=== PATIENT | female | born 1955 | race Caucasian/White ===

== ENCOUNTER 2020-12-22 14:01 | Outpatient (CLI) | payer MEDICARE, OTHER, SELFPAY ==
--- NOTE | 2020-12-22 08:45 | DI.RAD_ITS ---
Exam(s) XR KNEE RT 3V AP,LAT,CARLOTA EXAM: XR KNEE RT 3V AP,LAT,CARLOTA CLINICAL HISTORY: RIGHT KNEE PAIN. TECHNIQUE: 2D digital imaging was performed. COMPARISON: No exams were available for comparison FINDINGS: There is no evidence of acute fracture. There is a small joint effusion. There are significant oste oarthritic degenerative changes. There is [id number] apposition in the lateral compartment with re sultant valgus deformity and there is also severe narrowing and osteophytes in the patellofemoral com partment. Less narrowing in the medial compartment. In addition, there is a calcific density measuring 10 x 4 millimeters seen laterally. Doubtful for f marlys and possibly loose body No osseous lesions. IMPRESSION: Significant advanced osteoarthritic degenerative changes, most evident in the lateral patellofemoral compartments. Valgus deformity. 10 x 4 millimeter calcific density seen laterally. DATA REPOSITORY: RADIATION DOSE DELIVERED:
== END 2020-12-22 14:02 | disposition home or self-care (01) ==
LOC: DIORS 14:01
PROVIDERS: Visit Provider Student in an Organized Health Care Education/Training Program
DX: M25.561 Pain in right knee (principal); M17.11 Unilateral primary osteoarthritis, right knee; E66.01 Morbid (severe) obesity due to excess calories; Z68.43 Body mass index [BMI] 50.0-59.9, adult
CPT/HCPCS: 73562; 99203

== ENCOUNTER → 2021-02-02 10:55 | Outpatient (BNVA) | payer MEDICARE, OTHER, SELFPAY | PROVIDERS: PCP Family Medicine; Visit Provider Student in an Organized Health Care Education/Training Program | DX: M25.561 Pain in right knee (principal); M17.11 Unilateral primary osteoarthritis, right knee | CPT/HCPCS: 99213 ==

== ENCOUNTER 2021-02-25 14:19 | Outpatient (CLI) | payer MEDICARE, OTHER, SELFPAY ==
--- NOTE | 2021-02-25 14:00 | DI.RAD_ITS ---
Exam(s) XR KNEE RT 1V XR STANDING ALIGNMENT EXAM: XR STANDING ALIGNMENT and XR knee RT 1 V CLINICAL HISTORY: preoperative. TECHNIQUE: 2D digital imaging was performed. COMPARISON: CR XR KNEE RT 3V AP,LAT,CARLOTA from 12/22/2020 FINDINGS: BONES: The hips are well maintained. There are marked degenerative changes in the left knee particul marvin in the medial femoral tibial joint where there is joint space narrowing subchondral sclerosis an d periarticular spurring. In the right knee, there are marked degenerative changes seen particularly in the lateral femoral tibial joint and the patellofemoral joint where there is joint space narrowin g and periarticular spurring present. There does appear to be a small joint effusion. The ankles ar e well maintained. SOFT TISSUE: Atherosclerosis is present. IMPRESSION: Marked osteoarthritis of the knees. DATA REPOSITORY: RADIATION DOSE DELIVERED:
== END 2021-02-25 14:20 | disposition home or self-care (01) ==
LOC: DIORS 14:19
PROVIDERS: PCP Family Medicine; Referring Provider Family Medicine; Visit Provider Physician Assistant Surgical
DX: M17.11 Unilateral primary osteoarthritis, right knee (principal); Z01.818 Encounter for other preprocedural examination; I10 Essential (primary) hypertension
CPT/HCPCS: 73560; 77073

== ENCOUNTER 2021-03-09 01:26 | Outpatient (CLI) | payer MEDICARE, OTHER, SELFPAY ==
[2021-03-09 10:36] LABS: HCT 43.1 % (36.0-46.0); HGB 13.3 g/dL (11.2-15.7); MCH 29.6 pg (27.0-33.0); MCHC 30.9 % (32.0-36.0); MCV 95.8 fL (80-95); MPV 11.3 fL (8.0-11.0); Platelet Count 191 10^3/uL (130-400); RDW 12.9 % (11.7-14.6); RDW-SD 45.5 fL; WBC 6.44 10^3/uL (4.4-10.8)
[2021-03-09 11:00] LABS: Anion Gap 11.8 mmol/L (3-11); BUN 24 mg/dL (7-18); CO2 26.2 mmol/L (21.0-32.0); CREATININE 0.6 mg/dL (0.55-1.02); Calcium 9.3 mg/dL (8.5-10.1); Chloride 107 mmol/L (98-107); Glucose 107 mg/dL (74-106); Sodium 145 mmol/L (136-145)
[2021-03-09 11:17] LABS: Source Nasal/Nares
[2021-03-09 14:29] LABS: COVID-19 PCR Negative (Negative)
== END 2021-03-09 01:27 | disposition home or self-care (01) ==
LOC: LBO 01:26
PROVIDERS: PCP Family Medicine; Visit Provider Student in an Organized Health Care Education/Training Program
DX: M17.11 Unilateral primary osteoarthritis, right knee (principal); Z01.818 Encounter for other preprocedural examination; Z20.822 Contact with and (suspected) exposure to COVID-19
CPT/HCPCS: 36415; 80048; 85027; 87635

== ENCOUNTER 2021-03-10 16:07 | Day surgery (SDC) | payer MEDICARE, OTHER, SELFPAY ==
[2021-03-10] VITALS (12 sets, daily range): BP systolic 86–151; BP diastolic 52–81; PULSE 53–77; RESP 14–19; TEMP 36.1–37; O2SAT 94–100; BMI 51.0
[2021-03-10] MEDS: Acetaminophen 500 MG TAB 1000 MG PO (06:35)
[2021-03-10] MEDS: Gabapentin 300 MG CAP PO (06:35)
[2021-03-10] MEDS: Celecoxib 200 MG CAP 400 MG PO (06:35)
--- NOTE | 2021-03-10 06:51 | W.ANESPRE ---
General Info Date of Service Date Performed: 03/10/21 Height: 5 ft 1 in Weight: 122.5 kg Body Mass Index (BMI): 51.0 Surgical Procedure: Operation Date: 03/10/21 07:40 Proposed Procedures Side Surgeon p Knee Total Arthroplasty w/Orthoalign Right Dyllan Gordillo MD Meds Allergies and Home Medications Allergies Allergy/AdvReac Type Severity Reaction Status Date / Time nicotine Allergy Intermediate Nausea Verified 03/10/21 06:09 orange (food color) Allergy Mild Other (See Verified 03/10/21 06:09 Comment) red (food color) Allergy Mild Other (See Verified 03/10/21 06:09 Comment) Home Medication Medication Instructions Recorded levothyroxine 50 mcg PO DAILY #90 tab-cap 11/10/12 lisinopril 10 mg PO DAILY #90 tab-cap 11/10/12 multivitamin 1 ea PO DAILY 11/10/12 calcium carbonate 600 mg calcium 600 mg PO BID 12/17/20 (1,500 mg) tablet Right Lateral Off [employer] Work[employer] Brace #1 ea 12/22/20 ascorbic acid 100 mg-elderberry 1 tab PO DAILY 12/22/20 fruit 50 mg chewable tablet elderberry fruit [Elderberry] 200 mg PO DAILY 03/09/21 Current Visit Medications: Current Medications Generic Name Dose Route Start Last Admin Trade Name Forestq PRN Reason Stop Dose Admin Acetaminophen 1,000 mg 03/10/21 06:00 03/10/21 06:35 Acetaminophen 500 Mg Tab PO 03/10/21 16:00 1,000 mg PREOP OZIEL Administration Celecoxib 400 mg 03/10/21 06:00 03/10/21 06:35 Celecoxib 200 Mg Cap PO 03/10/21 16:00 400 mg PREOP OZIEL Administration Gabapentin 300 mg 03/10/21 06:00 03/10/21 06:35 Gabapentin 300 Mg Cap PO 03/10/21 16:00 300 mg PREOP OZIEL Administration Tranexamic Acid 1,000 mg/ 60 mls @ 360 mls/hr 03/10/21 06:00 Sodium Chloride IVPB 03/10/21 16:00 PREOP OZIEL Tranexamic Acid 1,000 mg/ 60 mls @ 360 mls/hr 03/10/21 06:00 Sodium Chloride IVPB 03/10/21 16:00 DIRECTED OZIEL Ringer's Solution 1,000 mls @ 80 mls/hr 03/10/21 06:00 IV 04/08/21 23:59 INFUSION OZIEL Cefazolin Sodium/Dextrose 2 gm in 50 mls @ 100 mls/hr 03/10/21 06:00 Ancef Duplex IVPB 04/08/21 23:59 PREOP OZIEL IV Miscellaneous Supplies 1 each 03/10/21 06:00 Iv Access IV 04/08/21 23:59 DIRECTED OZIEL Sodium Chloride 0 ml 03/10/21 06:00 Normal Saline Flush 10 Ml Syr IV 04/08/21 23:59 PRN PRN Sodium Chloride 0 ml 03/10/21 06:00 Normal Saline 10 Ml Vial IJ 04/08/21 23:59 DIRECTED PRN Sterile Water 0 ml 03/10/21 06:00 Water,Injection,Sterile 10 Ml Vial IJ 04/08/21 23:59 DIRECTED PRN PFSH Active Problems Active Problems: Problem Status Onset Code Primary osteoarthritis of right knee M17.11 Essential hypertension I10 Hypothyroidism E03.9 Morbid obesity E66.01 Medical History Medical History Anterior subluxation or dislocation of shoulder Closed fracture distal humerus, lateral epicondyle Diverticulosis of colon without diverticulitis Colonoscopy 08/14/08 Tobacco Smoking/Tobacco Use Status: Never Alcohol Alcohol Intake: never Substance Use Substance use: Never Substance use type: does not use Vital Signs and Lab Results Vital Signs Most Recent Vital Signs in EMR: Most Recent Vital Signs Temp Pulse Resp BP Pulse Ox 37.0 C 77 16 151/68 H 100 03/10/21 06:13 03/10/21 06:13 03/10/21 06:13 03/10/21 06:13 03/10/21 06:13 Lab Results Blood Type / Crossmatch: No Data to Display Complete Blood Count: White Blood Count 6.44 10^3/uL (4.4-10.8) 03/09/21 10:15 03/09/21 Red Blood Count 4.50 10^6/uL (3.93-5.22) 03/09/21 10:15 03/09/21 Hemoglobin 13.3 g/dL (11.2-15.7) 03/09/21 10:15 03/09/21 Hematocrit 43.1 % (36.0-46.0) 03/09/21 10:15 03/09/21 Platelet Count 191 10^3/uL (130-400) 03/09/21 10:15 03/09/21 Complete Metabolic Panel: Sodium Level 145 mmol/L (136-145) 03/09/21 10:15 03/09/21 Potassium Level 4.0 mmol/L (3.5-5.1) 03/09/21 10:15 03/09/21 Chloride Level 107 mmol/L (98-107) 03/09/21 10:15 03/09/21 Carbon Dioxide Level 26.2 mmol/L (21.0-32.0) 03/09/21 10:15 03/09/21 Blood Urea Nitrogen 24 mg/dL (7-18) H 03/09/21 10:15 03/09/21 Creatinine 0.6 mg/dL (0.55-1.02) 03/09/21 10:15 03/09/21 Estimated GFR/1.73 m2 >= 60.00 (mL/min/1.73m2) 03/09/21 10:15 03/09/21 Calcium Level 9.3 mg/dL (8.5-10.1) 03/09/21 10:15 03/09/21 Glucose Level 107 mg/dL (74-106) H 03/09/21 10:15 03/09/21 Liver Function Panel: No Data to Display Coagulation Panel: No Data to Display Cardiac Panel: No Data to Display Arterial Blood Gas: No Data to Display Venous Blood Gas: No Data to Display Pancreas Panel: No Data to Display Thyroid Panel: No Data to Display Infectious Disease: Coronavirus (COVID-19)(PCR) Negative (Negative) 03/09/21 10:20 03/09/21 Coronavirus 2019 Source Nasal/Nares 03/09/21 10:20 03/09/21 Blood Cultures: No Data to Display Toxicology Panel: No Data to Display Anesthesia Assessment and Plan Anesthesia History Personal History: No History of Anesthesia Complications Family History: No Family History of Anesthesia Complications Exercise Tolerance Exercise Tolerance: Metabolic Equivalents>4 Pertinent Negatives Pertinent Negatives: No Symptoms of GERD, No Major Cardiovascular Symptoms or Complaints and No Major Pulmonary Symptoms or Complaints Cardiac & Pulmonary Exam Cardiac Exam: Normal S1/S2 Heart Sounds Pulmonary Exam: Clear Bilateral Breath Sounds Implantable Cardiac Device Does patient have a Pacemaker or an ICD?: No Airway Exam Known Difficult Airway: No Mallampati Class: 1 Mouth Opening: Normal (> 3cm) Thyromental Distance: Greater than 3 cm Neck Range of Motion: Full ROM Neck Circumference: Normal Teeth Condition: Normal Dentition ASA Classification ASA Score: ASA 3 Emergency Case?: No NPO Status NPO Status: NPO Clears >2 hours, Solids >8 hours Anesthesia Plan Resuscitation Status: Full Code Anesthesia Technique: Spinal Anesthesia Airway Planned: Natural Airway Pain Management: Surgeon and patient request nerve block Monitors Used: Standard Monitors Preoperative Comments:: Uses BIPAP daily
[2021-03-10] MEDS: Lactated Ringers 1,000 ML 80 ML IV (07:03)
--- NOTE | 2021-03-10 07:23 | DSE_ITS ---
Documented by User: Barbara Wallerxon 03/10/21 07:29 DS: Diagnosis Discharge Diagnosis (1) Primary osteoarthritis of right knee: Status: Acute Discharge Plan Disposition Patient Disposition: HOME Condition: Good Discharge Details Reason For Visit: Right knee DJD Attending Provider: Dyllan Gordillo Primary Care Provider: Joyce Mann Home Meds and New Rx's Prescriptions: New aspirin 81 mg tablet,delayed release (DR/EC) 81 mg PO BID 30 Days Qty: 60 RF: 0 acetaminophen 500 mg tablet 1,000 mg PO Q8H PRN Qty: 90 RF: 0 celecoxib [Celebrex] 200 mg capsule 200 mg PO BID Qty: 30 RF: 0 pantoprazole 40 mg tablet,delayed release (DR/EC) 40 mg PO DAILY 30 Days Qty: 30 RF: 0 docusate sodium [Colace] 100 mg capsule 100 mg PO BID Qty: 30 RF: 0 gabapentin 300 mg capsule 300 mg PO QHS Qty: 14 RF: 0 oxycodone 5 mg tablet 5 mg PO Q4H PRN (Reason: severe post-operative pain) Qty: 18 RF: 0 Continued calcium carbonate [Calcium 600] 600 mg calcium (1,500 mg) tablet 600 mg PO BID RF: 0 ascorbic acid-elderberry fruit [Airborne (elderberry)] 100-50 mg tablet,chewable 1 tab PO DAILY RF: 0 (DME) 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 You should try to take short walks a few times a day. It is important that when resting you work on keeping the knee straight. Avoid putting a pillow behind the knee as this will encourage flexion. Work on range of motion exercises as provided by Physical Therapy. If you have the Rue[employer] bike coming, this will be your primary tool for exercise after the knee replacement. You should use it and follow the directions for the knee. Utilize the other exercises sparingly based on your symptoms. - Start outpatient physical therapy within 2 weeks. - You should wear the LEATHA hose on both legs for 2 weeks. You may remove these at night. You may also use any compression sock in place of the LEATHA hose. - Utilize [employer] to review exercises, see videos on exercises and obtain basic information pertaining to your surgery and your recovery. Dressing: Remove the Adolfo wrap by 2 days after your surgery and put on the LEATHA stocking given to you from the hospital. Keep the surgical dressing (underneath the ADOLFO wrap) in place for at least one week. After the first week it may be removed and replaced with light gauze and tape or nothing. The wound and dressing may get wet after 3 days but avoid soaking the dressing or otherwise it will need to be changed. Many people prefer covering the dressing with cling wrap (saran wrap) to minimize it from getting soaked. If it gets wet, just pat dry. If it starts to peel off then it will need to be changed. Medications: - You should take Tylenol and anti-inflammatory Celebrex as your primary pain control medications. If the Celebrex is too expensive or not covered, please call the office for another alternative (Advil/Ibuprofen or Naproxen/Aleve) - You have been prescribed a stronger pain medication Oxycodone for breakthrough pain, take as needed as prescribed. You can also halve this tablet to start. - You have also been prescribed a stomach acid reduction agent Pantoprozole to help reduce stomach acid and reflux. - You have been prescribed Gabapentin to take at night for restlessness and nerve pain. - You will be taking Aspirin 81mg twice a day for DVT prevention unless instructed otherwise. - If you have constipation you should take Colace (which has been prescribed) or Miralax (which you may purchase [id number]). It takes most people 3-4 days to have a bowel movement. Follow-up: 2 weeks If you have any acute concerns or questions, please do not hesitate to contact the office at [phone]. You may contact Dr. Gordillo with any questions after hours through the hospital at [phone] or on his cell phone at [phone]. Stand Alone Forms: Anesthesia Discharge Inst., Félix.Nerve Block Instructions Referrals: Dyllan Gordillo MD [ [facility] STAFF PHYSICIAN] - Equipment/Supplies: Walker Activity:: Elevate Remove Dressings/Wound Care:: Do Not Remove Shower/Bathe:: Cover Diet:: As Tolerated Discharge Orders Discharge Orders: Discharge Order (Routine); Ordered 03/10/21 Ordered By: Dyllan Gordillo DS: Data Vitals/I&O Vitals and I&O: Vital Signs Temperature 37.0 C 03/10/21 06:13 Pulse 67 03/10/21 07:16 Pulse Rhythm Regular 03/10/21 06:13 Respiratory Rate 16 03/10/21 07:16 Respiratory Depth Normal 03/10/21 06:13 Blood Pressure 133/66 03/10/21 07:16 Blood Pressure Mean 88 03/10/21 07:16 Pulse Oximetry 98 03/10/21 07:16 Oxygen Delivery Method Room Air 03/10/21 07:16 Oxygen Flow Rate 0 03/10/21 07:16 Pain Level 0 03/10/21 07:16 Comment 03/10/21 07:16 Intake & Output 03/09/21 03/09/21 03/10/21 11:59 23:59 11:59 Weight 124.284 kg 122.5 kg PFSH All Active Problems Primary osteoarthritis of right knee (Acute) Essential hypertension (Acute) Hypothyroidism (Acute) Morbid obesity (Acute) BMI >50 Medical History Anterior subluxation or dislocation of shoulder Closed fracture distal humerus, lateral epicondyle Diverticulosis of colon without diverticulitis Colonoscopy 08/14/08 Social History Smoking/Tobacco Use Status: Never Smoking risk assessment performed?: Yes Alcohol Intake: never Drug use: Never Substance use type: does not use Do you feel safe at home: Yes Do you feel safe in your relationship?: Yes Documented by User: Dyllan Gordillo MD 03/10/21 14:28 Date of service: 03/10/21 Time of Service: 14:27 Discharge Plan Disposition Patient Disposition: HOME Condition: Good Discharge Details Reason For Visit: Right knee DJD Attending Provider: Dyllan Gordillo Primary Care Provider: Joyce Mann Home Meds and New Rx's Prescriptions: New aspirin 81 mg tablet,delayed release (DR/EC) 81 mg PO BID 30 Days Qty: 60 RF: 0 acetaminophen 500 mg tablet 1,000 mg PO Q8H PRN Qty: 90 RF: 0 celecoxib [Celebrex] 200 mg capsule 200 mg PO BID Qty: 30 RF: 0 pantoprazole 40 mg tablet,delayed release (DR/EC) 40 mg PO DAILY 30 Days Qty: 30 RF: 0 docusate sodium [Colace] 100 mg capsule 100 mg PO BID Qty: 30 RF: 0 gabapentin 300 mg capsule 300 mg PO QHS Qty: 14 RF: 0 oxycodone 5 mg tablet 5 mg PO Q4H PRN (Reason: severe post-operative pain) Qty: 18 RF: 0 Continued calcium carbonate [Calcium 600] 600 mg calcium (1,500 mg) tablet 600 mg PO BID RF: 0 ascorbic acid-elderberry fruit [Airborne (elderberry)] 100-50 mg tablet,chewable 1 tab PO DAILY RF: 0 (DME) 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 You should try to take short walks a few times a day. It is important that when resting you work on keeping the knee straight. Avoid putting a pillow behind the knee as this will encourage flexion. Work on range of motion exercises as provided by Physical Therapy. If you have the [employer]ue89 bike coming, this will be your primary tool for e xercise after the knee replacement. You should use it and follow the directions for the knee. Utilize the other exercises sparingly based on your symptoms. - Start outpatient physical therapy within 2 weeks. - You should wear the LEATHA hose on both legs for 2 weeks. You may remove these at night. You may also use any compression sock in place of the LEATHA hose. - Utilize [employer] to review exercises, see videos on exercises and obtain basic information pertaining to your surgery and your recovery. Dressing: Remove the Adolfo wrap by 2 days after your surgery and put on the LEATHA stocking given to you from the hospital. Keep the surgical dressing (underneath the ADOLFO wrap) in place for at least one week. After the first week it may be removed and replaced with light gauze and tape or nothing. The wound and dressing may get wet after 3 days but avoid soaking the dressing or otherwise it will need to be changed. Many people prefer covering the dressing with cling wrap (saran wrap) to minimize it from getting soaked. If it gets wet, just pat dry. If it starts to peel off then it will need to be changed. Medications: - You should take Tylenol and anti-inflammatory Celebrex as your primary pain control medications. If the Celebrex is too expensive or not covered, please call the office for another alternative (Advil/Ibuprofen or Naproxen/Aleve) - You have been prescribed a stronger pain medication Oxycodone for breakthrough pain, take as needed as prescribed. You can also halve this tablet to start. - You have also been prescribed a stomach acid reduction agent Pantoprozole to help reduce stomach acid and reflux. - You have been prescribed Gabapentin to take at night for restlessness and nerve pain. - You will be taking Aspirin 81mg twice a day for DVT prevention unless instructed otherwise. - If you have constipation you should take Colace (which has been prescribed) or Miralax (which you may purchase [id number]). It takes most people 3-4 days to have a bowel movement. Follow-up: 2 weeks If you have any acute concerns or questions, please do not hesitate to contact the office at [phone]. You may contact Dr. Gordillo with any questions after hours through the hospital at [phone] or on his cell phone at [phone]. Stand Alone Forms: Anesthesia Discharge Inst., Anes.Nerve Block Instructions Referrals: Dyllan Gordillo MD [ [facility] STAFF PHYSICIAN] - Equipment/Supplies: Walker Activity:: Elevate Remove Dressings/Wound Care:: Do Not Remove Shower/Bathe:: Cover Diet:: As Tolerated Discharge Orders Discharge Orders: Discharge Order (Routine); Ordered 03/10/21 Ordered By: Dyllan Gordillo DS: Summary Time Spent with Patient providing and/or coordinating discharge services: Less than 30 minutes Status at Discharge Functional status at discharge: uses cane/walker Overall status at discharge: patient is progressing back to baseline Mental Status: mental status grossly normal Speech and Movement: speech and movement normal Mood: congruent mood Affect: normal affect Exam Psych Mental Status: mental status grossly normal Speech and Movement: speech and movement normal Mood: congruent mood Affect: normal affect PFSH All Active Problems Primary osteoarthritis of right knee (Acute) Essential hypertension (Acute) Hypothyroidism (Acute) Morbid obesity (Acute) BMI >50 Medical History Anterior subluxation or dislocation of shoulder Closed fracture distal humerus, lateral epicondyle Diverticulosis of colon without diverticulitis Colonoscopy 08/14/08 Social History Smoking/Tobacco Use Status: Never Smoking risk assessment performed?: Yes Alcohol Intake: never Drug use: Never Substance use type: does not use Do you feel safe at home: Yes Do you feel safe in your relationship?: Yes
--- NOTE | 2021-03-10 07:30 | NUR.NOTE ---
Nerve block done at bedside. Time out performed prior. Cardiac, pulse ox, and BP monitored during procedure. Nursing Note: Tolerated procedure well/uneventful.
[2021-03-10] MEDS: ceFAZolin 2 GM/50 ML BAG IVPB (08:02)
[2021-03-10] MEDS: Bupivacaine 0.25% Pres-Free 30 ML VIAL (09:08)
--- NOTE | 2021-03-10 09:08 | W.ANESNERVE ---
Nerve Block Single Injection Procedure Date and Time Date Performed: 03/10/21 Procedure Start: 07:18 Location Where Procedure Performed Procedure Location: Day Surgery Unit Reason Performed: Postoperative Analgesia Requesting Provider: Rand Timeout Performed Timeout Performed: Yes Monitoring Used ECG, Blood Pressure, SpO2 and See EMR for corresponding vital signs Sterility Sterility: Hand Hygiene, Surgical Cap, Surgical Mask, Sterile Gloves, Eye Protection and Chlorhexidine Sedation Given During Procedure Sedation Given (Indicate Dose Given): No Sedation given Patient Mental Status Patient Mental Status: Awake Nerve Block 1st Nerve Block: Laterality: Right Block Type: Adductor Canal Needle / Catheter Used: 120mm SonoPlex II Local Anesthetic Bolus (Indicate Dose Given): Lidocaine used for local infiltration of skin, Injected in 3-5ml increments after negative blood aspiration and Bupivacaine 0.25% Dose:: 15mL Additives (Indicate Dose Given): None Ultrasound: Sterile probe cover and gel used Ultrasound Image Saved?: Yes Nerve Stimulator: Not Used Paresthesia: None Procedure Tolerated: No Complications Procedure Outcome: Successful Performed By: Aileen Leggett
[2021-03-10] MEDS: Normal Saline 50 ML (09:10)
[2021-03-10] MEDS: Ketorolac 30 MG/ML VIAL (09:10)
--- NOTE | 2021-03-10 13:15 | W.ANESPOSTOP ---
Postoperative Evaluation Date, Time and Location Date Performed: 03/10/21 Time Performed: 13:15 Patient Location: Day Surgery Unit Vital Signs Most Recent Imported Vital Signs: Most Recent Vital Signs Temp Pulse Resp BP Pulse Ox 36.4 C L 53 L 16 120/78 99 03/10/21 11:55 03/10/21 11:55 03/10/21 11:55 03/10/21 11:55 03/10/21 11:55 Pain Score Most Recent Pain Score: Most Recent Pain Score Pain Level 5 03/10/21 11:55 Assessment Mental Status: Awake (Alert & Oriented to Patient Baseline) Airway and Respiratory Function: Patent airway with normal (patient baseline) respiratory exam Cardiovascular Function: Hemodynamically Stable Hydration Status: Adequately Hydrated Nausea & Vomiting: No Nausea or Vomiting Pain: Pain is tolerable per patient Peripheral Nerve Block: Patient did not receive a nerve block
--- NOTE | 2021-03-10 17:00 | PT.INIE ---
Date of service: 03/10/21 Time of Service: 13:45 PT Notes Visit Reasons: Right knee DJD Physical Therapy Day Surgery Initial Evaluation Date: 03/10/2021 Referring Doctor: MINISTERIO Benson PT Orders: PT CONSULT: Status post Ortho surgery Precautions: WBAT on right LE with AD Patient Profile/Admitting Diagnosis: Zack is a 65-year-old female with primary osteoarthritis of the right knee status post right total knee arthroplasty on postoperative day 0. PMHX: Medical History Anterior subluxation or dislocation of shoulder Closed fracture distal humerus, lateral epicondyle Diverticulosis of colon without diverticulitis Colonoscopy 08/14/08 Social History/Home Situation: Lives with in a private home with a ramp to enter. No falls in the past year. 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 Equipment Owned/DME: [facility] Subjective: Reports lightheadedness initially upon sitting up on edge of bed, subsided with ambulation activity. Complained of right foot being awkward at the start but was able to get better with each step during ambulation training. Was happy that she did a lot better than she expected at end of PT session. Objective: General Observation: Supine on stretcher. CARMENZA wraps to right LE. Cryocuff to right knee. Obese. Mental Status: Alert and oriented x 4 Pain: Reported 3/10 pain on the right knee with weight bearing ROM: Right Lower Extremity: Hip flexion WFL. Hip abduction WFL. Knee flexion 30 degrees to 90 degrees. Knee extension -30 degrees. Ankle dorsiflexion WFL. Ankle plantarflexion WFL. Left Lower Extremity: Hip flexion WFL. Hip abduction WFL. Knee flexion WFL. Ankle dorsiflexion WFL. Ankle plantarflexion WFL. Strength: Right Lower Extremity: Hip flexors 4/5. Hip abductors 4/5. Knee flexors 3-/5. Knee extensors 3-/5. Ankle dorsiflexors 5/5. Ankle plantarflexors 5/5. Left Lower Extremity:Hip flexors 5/5. Hip abductors 5/5. Knee flexors 5/5. Knee extensors 5/5. Ankle dorsiflexors 5/5. Ankle plantarflexors 5/5. Sensation: Intact as to pain and light pressure in bilateral lower extremities Bed Mobility/Transfers: Supine to sit standby assist Sit to stand contact-guard assist Stand to sit standby assist Bed to chair contact-guard assist Gait: Instructed patient with level surface ambulation of 25 feet + 50 feet using front-wheeled walker with step to gait pattern. Contact-guard assist provided. Moderate verbal cues given to increase advancement of her right foot forward and to the right to increase base of support and maximize stability of walking. Patient reports much improved gait pattern compared to before surgery. Lightheadedness diminished for stand and ambulation. Good quad activation. Balance: Static Sitting: Normal Dynamic Sitting: Normal Static Standing: Fair Dynamic Standing: Fair Special Tests: Mobility Limitations Standardized Measure [facility]-PAC 6 clicks Basic Mobility Inpatient Short Form: Raw Score: 20 CMS Score: 36% deficit Informed Consent/Education: Patient instructed in purpose of PT consult. Education and training on initial set of exercises that can be done at home have been completed with patient. Assessment: Audrey requires use of a front wheeled walker to maximize independence and reduce fall risk. Patient presents with clinical signs and symptoms consistent with current/admitting diagnoses that have resulted to mobility limitations and gait instability as demonstrated by the following impairment level findings: 1. Decreased strength to left right major muscle groups 2. Impaired standing balance 3. Limitation of joint range of motion in right knee Impairments are contributing to the following functional limitations: 1. Inability to safely ambulate without assistive device 2. Increase completion time for mobility ADL performance 3. Increased fall risk Patient is assessed as a 89219 moderate complexity based on the following: History: 65-year-old female with impairment level findings, functional limitations, and past medical history as indicated above Examination: Demonstrable impairment in strength, balance, and mobility level with underlying impairments and functional limitations as documented above Presentation: Evolving Decision Makin moderate complexity Goals: N/A. PT evaluation and 1-2 treatment sessions only for functional mobility training using recommended AD and for HEP instruction. Plan of Care/Treatment Plan: N/A. PT evaluation and 1-2 treatment session only for functional mobility training using recommended AD and for HEP instruction. DISCHARGE RECOMMENDATIONS: [] Home with no services [] [] Home with services [specify] [X] Home with outpatient PT. Home when medically cleared by orthopedic surgeon. Outpatient PT services in order to facilitate return to independent community ambulation with least restrictive assistive ambulatory device. [] Alf Care [] [] SNF versus LTC based on ability to participate and progress [] TREATMENT CODE/TIME: 42481 x 25 minutes, 25556 x 30 minutes beginning at 13:45 PM. Thank you for the opportunity to participate in the care of this patient. Radha Palomares PT, DPT, CLT [facility] [place], [place]
--- NOTE | 2021-03-10 21:28 | W.PM.OP ---
Date of service: 03/10/21 Time of Service: 09:53 Operative Note Operative Note DATE OF PROCEDURE: 03/10/21 PRE-OP DIAGNOSIS: Right Knee Osteoarthritis POST-OP DIAGNOSIS: same PROCEDURE: Right Total Knee Replacement SURGEON: Dyllan Gordillo STORE ADMINISTRATIVE ASSISTANT: Barbara Griffin ANESTHESIA TYPE: General LMA/ETT Refer to Anesthesia Record ESTIMATED BLOOD LOSS: 250 PATHOLOGY: none sent TOURNIQUET TIME: 0 COMPLICATIONS: None Patient was transported to: PACU Patient's condition: stable Implants: 1. Depuy Attune Cementless Cruciate Retaining Femoral Component, Size 5 2. Depuy Attune Cementless Rotating Platform Tibial Component, Size 4 3. Depuy Attune 5x8 CR/RP Poly 4. Depuy Attune Patellar Component, Size 35 Indications: I have seen Danika in clinic for symptoms of bilateral knee arthritis, confirmed with radiographic findings. Her right knee had a significant valgus deformity and was the most bothersome for her. She has exhausted nonoperative methods and was having significant limitations in daily function and desired better function and less pain. I discussed the technical details of a knee replacement. I explained the risks of the procedure to include, but not limited to, bleeding, infection, pain, stiffness, fracture, damage to nerves and vessels, damage to muscles and tendons, loosening, need for repeat procedure, blood clot and cardiopulmonary demise. Despite these risks, Earline elected to proceed. Findings: There was significant signs of arthritis throughout the knee involving all 3 compartments. The patella was tracking laterally and there was some contraction of the soft tissues around the lateral capsule and patella. Procedure Description: Earline was greeted in the preoperative holding area where the correct side was identified and marked. The consent was reviewed with the patient and signed. The history and physical was updated. All questions were answered. Preoperative mediacations were administered: Acetaminophen 1000mg, Celebrex 400mg, and Gabapentin 300mg. An adductor canal block was then administered by the anesthesia team in the PACU. She was taken back to the operating room. A spinal anesthestic was then attempted bit unsuccessful so she was transitioned to a general anesthetic. The patient was placed into the supine position on the operating room table. A nonsterile tourniquet was placed high onto the leg. Posts were placed for positioning during the procedure. All bony prominences were well padded. Prophylactic antibiotics in the form of Cefazolin were administered. 1g of Tranxemic Acid was given intravenously within 30 minutes of incision. The right leg was then prepped with Chloraprep and draped in a standard fashion with impervious stockinette. A second prep with Chloraprep was performed prior to application of Iodine impregnated skin protection. A timeout to confirm correct identity, side and site, procedure, allergies, anesthesia, and medical concerns was performed. With the knee in some flexion, a midline incision was made overlying the knee. Full thickness skin flaps were raised once the extensor mechanism was encountered. These were raised medially and laterally. Any bleeding was controlled with electrocautery. Once the extensor mechanism was fully exposed, a medial parapatellar arthrotomy was performed in a flexed position. All bleeding from the arthrotomy and the geniculate arteries was coagulated. A medial subperiosteal peel was performed with electrocautery to the midcoronal plane. The fat pad was removed while keeping the patellar tendon protected. The anterior distal femur synovium was removed for later visualization. The ACL and PCL were resected and the anterior horn of the lateral meniscus was transected. The knee was then flexed with the patella everted. Large osteophytes from the tibia were removed. Large osteophytes from the femur were removed. All three compartments had notable wear and osteophytes and the patella was laterally tracking. A single starting pin was then placed 1cm anterior to the PCL insertion and the notch in the direction of the femoral head. The OrthoAlign device was applied over the pin. It was oriented to be in line with the epicondylar axis and the trochlear groove. It was then pinned into place. The navigation computer was then turned on and calibrated. The distal femur cut was set at 0 degrees varus/valgus and 2.5 degrees flexion. The distal femur cutting guide then was positioned for a 9mm cut. The distal femur was cut with an oscillating saw while protecting the soft tissues. The tibia was then addressed. The OrthoAlign device was placed over the tibial tubercle and medial tibia and secured into position. Once again, OrthoAlign was calibrated and then set for a 0 degree varus/valgus cut and 5 degrees of posterior slope. With this locked into position, the cut thickness stylus was used to assess cut thickness. The lateral side was the most involved and set to 2mm, corresponding to 8mm medially. This was then held in position and pinned into place with 2 additional pins and a cross pin for stability. The medial and lateral collateral ligaments were protected and the cut was performed. With this completed, it was assessed and noted to be of appropriate dimensions. The guide and OrthoAlign was removed. A spacer block was inserted and the knee was brought into extension. The 7mm spacer block provided full extension, without hyperextension and with stability of both the medial and lateral collateral ligaments was assessed. The pins from the femur and the tibia were then removed. The distal femur was then sized. The anterior stylus was placed onto the lateral ridge of the anterior femur. This indicated a size 5 femur. The external rotation of the guide was adjusted to 0 degrees to match the epicondylar axis, perpendicular to [place]?s line, and balance the flexion space. The 4-in-1 cutting guide was the placed. The posterior medial femur cut was evaluated and appeared of good thickness. The spacer block was inserted underneath the cutting guide and stability was confirmed in 90 degrees of flexion. An adriana wing was used to confirm appropriate position of the anterior cut to avoid notching. This cutting guide was ensured to be flush on the cut surface and then pinned into place with headed pins. While protecting the soft tissues, quad tendon, and collateral ligaments, the anterior and posterior cuts were performed with a saw. The central two pins were removed and the posterior and anterior chamfers were cut next. The notch-cutting guide was placed. This was pinned to lateralize the femoral component as much as possible while keeping it flush on the cut surface. This was then pinned into position. A reciprocating saw was used to make the notch cut. A rasp smoothed the cut surfaces. The medial and lateral menisci were removed. A trial femoral component was then inserted, impacted down to the cut surfaces, and the lug holes were drilled. A provisional trial tibial component was placed and the knee was brought through range of motion. The polyethylene was trialed until there was good flexion and extension with excellent stability to the medial and lateral collaterals. The patella was tracking without thumbs. A size 8mm polyethylene component provided the best range of motion and stability with less than 2mm gapping with medial and lateral stress and full extension without significant hyperextension. The tibial cut surface was fully exposed. The tibia was then sized as a 4. The tibia had been previously marked during trialing to correspond to the center of the tibial component to help with rotation. The trial was aligned to this kamron, approximately rotated to the medial 1/3rd of the tibial tubercle. The trial was pinned into place. The tibia was prepared with a reamer and a keel punch and lug holes. The knee was then brought into extension and the patella was measured as 22mm. Using the patellar clamp and cut guide, this was resected to a flat surface with at least 13mm of thickness remaining. The size 35 patella fit the best. This was oriented and then clamped into position. The lugs were drilled. The trial components were removed. The final components were opened on the back table. The periosteal and capsular tissues, especially posteriorly, around the knee were then systematically injected with a periarticular cocktail consisting of 50cc 0.25% Marcaine, 30mg Ketorolac, 20cc of Exparal and 50cc of injectable saline. The knee was thoroughly irrigated with a pulse lavage and dried. Irrisept was also used to irrigate the tissues. On the back table, with the implants opened, the cement was mixed. One batch of high viscosity cement was prepared with vacuum assistance. After the cement was ready a small amount was placed on the cut surface of the patella and the patellar button was clamped into position and held. While the cement was hardening, the cementless knee components were placed. Starting with the tibial component, the tibia was subluxed anteriorly and the lug holes of the component were lined up. The tibia was then impacted with an impactor and mallet until the tibial component was in contact with the tibia. The final polyethylene component was inserted. Then, the femoral component was inserted. The lug holes were aligned and the component was impacted into position. The knee was irrigated with Irrisept chlorhexadine solution. This was allowed to sit in the knee for 3 minutes. After the cement had finally cured, approximately 15min, the clamp was removed from the patella and the knee was taken through range of motion. The patella was was still tracking somewhat laterally. Therefore performed a lateral release in a sequential fashion and a Z-lengthening type procedure where there is no full-thickness cut through the lateral retinaculum. This release was performed both intra-articularly as well as extracapsular. All adhesions to the patellar tendon and the patella were also released allowing it to move more medial and stay within the groove. A lateral facetectomy was also performed. This did allow the patella to sit more flush within the trochlea. The capsule was then reapproximated with a #2 FiberWire at multiple locations. The capsule was finally closed with a No. 2 Stratafix, barbed suture. The second dosing of 1g TXA was started. Deep tissues were then reapproximated with 0 Vicryl and 2-0 Vicryl. The skin was closed with a running 3-0 Monocryl in a subcuticular fashion. This was reinforced with skin glue. A Mepilex silver dressing was applied along with a [id number] CARMENZA wrap. A CryoCuff was applied. Earline was transferred to the hospital bed without difficulty an suffering no apparent complication. Earline has a good prognosis. Physical therapy will start today and without restrictions, weight-bearing as tolerated. Aspirin 81mg BID will be used for DVT prophylaxis.
== END 2021-03-10 16:08 | disposition home or self-care (01) ==
LOC: SUR 16:08
PROVIDERS: PCP Family Medicine; Visit Provider Student in an Organized Health Care Education/Training Program
PROC: (CPT 27447; principal; 2021-03-10 07:30)
DX: M17.11 Unilateral primary osteoarthritis, right knee (principal); G89.18 Other acute postprocedural pain; M21.061 Valgus deformity, not elsewhere classified, right knee
CPT/HCPCS: 20985; 27447; C1776; 76942; 97162; 97530; J0360; J0690; J1100; J1885; J2250; J2405

== ENCOUNTER → 2021-03-13 10:49 | Outpatient (BNVA) | payer MEDICARE, OTHER, SELFPAY | PROVIDERS: PCP Family Medicine; Referring Provider Family Medicine | DX: R69 Illness, unspecified (principal) ==

== ENCOUNTER → 2021-03-18 08:27 | Outpatient (BNVA) | payer MEDICARE, OTHER, SELFPAY | PROVIDERS: PCP Family Medicine; Referring Provider Family Medicine | DX: Z47.1 Aftercare following joint replacement surgery (principal); Z96.651 Presence of right artificial knee joint ==

== ENCOUNTER 2021-03-23 13:06 | Outpatient (CLI) | payer MEDICARE, OTHER, SELFPAY ==
--- NOTE | 2021-03-23 12:45 | DI.RAD_ITS ---
Exam(s) XR KNEE RT 1V XR STANDING ALIGNMENT EXAM: XR STANDING ALIGNMENT CLINICAL HISTORY: 1ST POST OP R TKA. TECHNIQUE: 2D digital imaging was performed. Standing AP views were performed from the pelvis throu gh the ankles. COMPARISON: CR XR STANDING ALIGNMENT from 02/25/2021 CR XR KNEE RT 1V from 03/23/2021 FINDINGS: BONES: No acute fracture is present. No bony destructive lesion is seen. JOINTS: Knees: Right total knee prosthesis show satisfactory alignment. No abnormal bony lucencies. Left knee shows severe degenerative changes of the medial femoral tibial joint with severe varus ang ulation. The ankle and hip joints are unremarkable. SOFT TISSUE: Normal. IMPRESSION: No significant leg length discrepancy. Right knee prosthesis is unremarkable. Severe degenerative c hanges of the medial femoral tibial joint of the left knee. DATA REPOSITORY: RADIATION DOSE DELIVERED:
== END 2021-03-23 13:07 | disposition home or self-care (01) ==
LOC: DIORS 13:06
PROVIDERS: PCP Family Medicine; Referring Provider Family Medicine; Visit Provider Physician Assistant
DX: Z96.651 Presence of right artificial knee joint (principal); Z47.1 Aftercare following joint replacement surgery
CPT/HCPCS: 73560; 77073

== ENCOUNTER → 2021-04-06 12:51 | Outpatient (BNVA) | payer MEDICARE, OTHER, SELFPAY | PROVIDERS: PCP Family Medicine; Referring Provider Family Medicine; Visit Provider Student in an Organized Health Care Education/Training Program | DX: Z47.1 Aftercare following joint replacement surgery (principal); Z96.651 Presence of right artificial knee joint ==

== ENCOUNTER → 2021-04-20 13:50 | Outpatient (BNVA) | payer MEDICARE, OTHER, SELFPAY | PROVIDERS: PCP Family Medicine; Referring Provider Family Medicine; Visit Provider Student in an Organized Health Care Education/Training Program | DX: Z47.1 Aftercare following joint replacement surgery (principal); Z96.651 Presence of right artificial knee joint ==

== ENCOUNTER → 2021-06-01 13:49 | Outpatient (BNVA) | payer MEDICARE, OTHER, SELFPAY | PROVIDERS: PCP Family Medicine; Referring Provider Family Medicine; Visit Provider Student in an Organized Health Care Education/Training Program | DX: Z96.651 Presence of right artificial knee joint (principal) ==

== ENCOUNTER → 2021-08-24 12:53 | Outpatient (BNVA) | payer MEDICARE, OTHER, SELFPAY | PROVIDERS: PCP Family Medicine; Referring Provider Family Medicine; Visit Provider Student in an Organized Health Care Education/Training Program | DX: Z96.651 Presence of right artificial knee joint (principal) | CPT/HCPCS: 99212 ==

== ENCOUNTER 2022-03-15 09:30 | Outpatient (CLI) | payer MEDICARE, OTHER, SELFPAY ==
--- NOTE | 2022-03-15 15:00 | DI.RAD_ITS ---
Exam(s) XR KNEE RT 2V AP,LAT EXAM: XR KNEE RT 2V AP,LAT INDICATION: f/u R TKA. COMPARISON: CR XR KNEE RT 1V from 03/23/2021 CR XR STANDING ALIGNMENT from 03/23/2021 TECHNIQUE: 2D digital imaging was performed. Two views. FINDINGS: There is been no change in the alignment of the total knee prosthesis. No suspicious bony lucencies. DATA REPOSITORY: RADIATION DOSE DELIVERED:
== END 2022-03-15 09:31 | disposition home or self-care (01) ==
LOC: DIORS 03-16 08:47
PROVIDERS: PCP Family Medicine; Visit Provider Student in an Organized Health Care Education/Training Program
DX: Z96.651 Presence of right artificial knee joint (principal)
CPT/HCPCS: 99213; 73560